=== PATIENT | male | born 1995 | race Caucasian/White ===

== ENCOUNTER 2021-09-30 10:00 | Outpatient (RCR) | payer OTHER, SELFPAY ==
[2021-09-01 12:21] VITALS: BMI 44.1
--- NOTE | 2021-09-01 14:14 | PC.ADMIT ---
Patient is a 25 year old transgendered male who lives in an apartment with roommates. He self referred back to the program as patient has a history of attending [facility] in 2018 and 2019. Patient struggling with increased depression with passive SI-denied plan or intent, increased anxiety, and reports social isolation spending much of his time in his room d/t COVID and not interacting much with others. He describes himself as having touch starvation made worse d/t the pandemic. Patient reports he is afraid to go anywhere including taking the bus or go to the store as he fears he will get Covid and also reports his roommate is immune compromised thus is afraid he will give it to his roommate even though he has been vaccinated per his report. Patient also stated he is in chronic pain, muscular pain in his middle to upper back and shoulders which he has recently been prescribed Lyrica from his End User Consultant. Patient feeling helpless and hopeless. Feels he has no supports or structure in his life and feels things are worse when he leaves his room as things are unpredictable. Lost interest in doing things. Reports disruptive sleep d/t nightmares and hyperviligence triggered my PTSD . Patient reports turbulent relationship with his parents whom he feels are not supportive. Patient feels he is unable to work as his anxiety prevents him from getting a job and also feels he is not capable to work. Patient is alert and oriented x4. Calm and cooperative. Presents with depressed mood and affect. Reports passive SI stating he thinks about and how he could whether he did it himself or if it just happens. Denied plan or intent and also stated he does not want to and thinks about the impact it would have on others is his protective factor. Reconciled patient's medications with patient and patient's pharmacy. Patient stated he is taking his medications as prescribed however stopped taking his testosterone 8-12 months ago, unclear why. Patient plans on restarting it in November, I advised patient to talk to his PCP regarding what dose he should start at since he has not taken it in almost a year and patient agreed.
--- NOTE | 2021-09-01 15:42 | PC.NURSE ---
Case opened in treatment team.
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
--- NOTE | 2021-09-02 10:17 | PC.NURSE ---
Emailed patient a copy of his safety plan.
--- NOTE | 2021-09-04 11:46 | PC.NURSE ---
Patient looking for assistance in setting up an appointment for a PAP test as patient stated he has not had one. Assisted patient in obtaining an appointment at [facility]. See discharge plan for details. Patient is aware of appointment.
--- NOTE | 2021-09-04 15:22 | PC.NURSE ---
I called and spoke with pt at his request. He spoke about concerns about growing social anxiety and agoraphobia despite efforts to reach out to others and leave the house at times. he spoke about how this is fueled by COVID and fear of getting it, and the fact that his roommate is immunocompromised. Pt also said he just saw his therapist at [facility] for the last time, as this therapist (Christopher Padron) is leaving [facility]. He said the therapist indicated that pt could be assigned a temporary therapist while waiting to get in with a therapist at [facility]. I agreed to call [facility] and see about this. We discussed use of groups, and ways to make groups feel more beneficial when difficult feelings (shame, embarrassment) come up in response to silence after talking about stressors (i.e. share about the feelings).
--- NOTE | 2021-09-04 15:29 | PC.NURSE ---
At pt's request, I called and left a message for [facility] Corcoran asking about the possibility of getting pt a temporary therapist while waiting to get in with [facility], since pt's therapist recently left the agency.
--- NOTE | 2021-09-09 17:23 | HO.PHPPROGNO ---
Subjective Subjective Date of Service: 09/09/21 Reason For Visit: Generalized Anxiety, Depression D/o, PTSD Interim History: Patient evaluated this morning and upon interview he reports he has not started taking the prazosin, will start tonight. Also reports it is too soon to say if duloxetine is helping. Says he is interested in a PRN anxiety medication. Has tried hydroxyzine and abilify was added at one point to even out anxiety and psychosis. Says he thinks abilify helped (discontinued due to wt gain) but vistaril didnt have much of an effect. Sx of anxiety include hypervigilance, my brain will tell me its a threat when he hears noises and says sometimes white noise will sound like voices but he can reality test this. Says I keep getting the message that people are interfering with my safety or threatening me, which doesnt make any sense. Says his anxiety is very high, rates it as a 7/10 each day. Alleviating factors for anxiety breathing and taking a hot shower. Says last night he had intense anxiety and the feeling lasted a few hours, it was unbearable. Says this happens to him 3-4 times a week and it worse at night due to having more unstructured time. Denies SI/ urges for self harm. Says he still wakes up a lot from nightmares, feels fatigued all of the time. Appetite is regular. Denies overeating. Has cannabis cravings.? Medication Compliance: Yes Side effects from medications: No Attending Groups: Yes Review of Systems Acute medical concerns: No Medical Review of Systems: unchanged Mental Status Exam Mental Status Exam Narrative: Well developed, overweight male, in NAD. A&OX4. Casually dressed, normal grooming and hygiene. Fully attentive during interview. No unusual movements or psychomotor changes observed. Speech clear, normal rate, tone, volume, without any time of pressure. Thought process goal directed, logical. No delusional thought, no AH/VH. Denies SI/SIB. Memory and concentration intact. Insight/judgment fair. Patient Behavior:?Appropriate, Cooperative and Good Eye Contact Mood Description:? anxious Affect Description:?blunted Patient Cognition Impaired:?No Ability to Follow Directions:?Excellent Speech Pattern:?Clear, Appropriate and Coherent Memory Description:?Intact Hallucinations:?None Delusions:?Not Present Diagnostics Vital Signs (24Hr): BMI result Body Mass Index 44.1 Assessment & Plan Assessment & Plan (1) MDD (major depressive disorder), recurrent episode, moderate: Status: Acute Code(s): F33.1 - Major depressive disorder, recurrent, moderate (2) Chronic post-traumatic stress disorder (PTSD): Status: Acute Code(s): F43.12 - Post-traumatic stress disorder, chronic (3) Cannabis abuse: Status: Acute Code(s): F12.10 - Cannabis abuse, uncomplicated Plan Pt reports ongoing PTSD symptoms, including increased hypervigilance, nightmares, exaggerated startle response, isolation, anhedonia. He reports depressive symptoms have been worsening through July and August. Hx of passive SI, with no intent or plan. Reports feeling safe . Plan: 1. start prazosin 1mg at bedtime for nightmares. 2. continue cymbalta 40mg daily for sx of depression, anxiety, PTSD, and chronic pain 3. continue abstinence from cannabis 4. Start seroquel 50 mg QD PRN for acute anxiety, anxious distress, mood lability 5. Continue with [facility] plan of care. 6. Follow-up as per protocol. Patient educated on: diagnosis, medication risk/benefits and therapeutic strategies Certification I certify that partial hospital treatment is medically necessary due to the symptoms and problems resulting from the patient's mental illness and the failure to treat the patient at the partial hospital level of care would likely result in the patient requiring inpatient psychiatric care which could not be prevented at a less intensive level of care. I spent minutes with the patient and/or on the patient floor today, greater than?50% of which was spent counseling/coordinating care. Discharge Plan Discharge Attending provider: Kirill Perez Additional Instructions: [facility] #[phone]. Appointment on September 25, 2021 at 3:00 pm with PCP Nicholas Mccracken. Medications: New duloxetine [Cymbalta] 20 mg capsule,delayed release(DR/EC) 20 mg PO BID 7 Days Qty: 14 0RF quetiapine [Seroquel] 50 mg tablet 50 mg PO DAILY PRN (Reason: anxiety) Qty: 14 0RF prazosin 2 mg capsule 4 mg PO BEDTIME Qty: 14 0RF Discontinued duloxetine [Cymbalta] 30 mg Capsule,Delayed Release(Dr/Ec) 30 mg PO DAILY 0RF No Action levothyroxine 100 mcg Tablet 200 mcg PO DAILY 0RF Rx Instructions: 100 mcg tablet. Take 2 tabs daily. lisinopril 5 mg Tablet 5 mg PO DAILY 0RF ergocalciferol (vitamin D2) [Vitamin D2] 1,250 mcg (50,000 unit) Capsule 1,250 mcg PO QWEEK 0RF Rx Instructions: Take on Wednesday pregabalin [Lyrica] 150 mg Capsule 150 mg PO BID 0RF Stand Alone Forms: Patient Portal Discharge page
--- NOTE | 2021-09-16 11:09 | HO.PHPPROGNO ---
Subjective Subjective Date of Service: 09/16/21 Reason For Visit: Generalized Anxiety, Depression D/o, PTSD Interim History: I evaluated the pt this morning and upon interview he denies benefit on prazosin, says he still has nightmares every night and ?high anxiety? and he is waking up ?quite a lot.? Pt says his nightmares are trauma and grief related. He recently increased Lisinopril to 10 mg x 1 week, denies SE, however says he has a hx of syncope due to hypotension, last incident of this was november 2019. He attributes this to anxiety and ?getting up too quickly from a sitting position.? Has had a cardiac workup and says all his EKGs are normal and a seizure disorder was ruled out. Reports positive benefit on PRN Seroquel, ?slows everything down? when he is very activated. Says his anxiety is ?still incredibly high day to day? and he has ?moments of intense anxiety,? but denies panic attacks. Medication Compliance: Yes Side effects from medications: No Attending Groups: Yes Review of Systems Acute medical concerns: No Medical Review of Systems: unchanged Mental Status Exam Mental Status Exam Narrative: Well developed, overweight male, in NAD. A&OX4. Casually dressed, normal grooming and hygiene. Fully attentive during interview. No unusual movements or psychomotor changes observed. Speech clear, normal rate, tone, volume, without any time of pressure. Thought process goal directed, logical. No delusional thought, no AH/VH. Denies SI/SIB. Memory and concentration intact. Insight/judgment fair. Patient Behavior:?Appropriate, Cooperative and Good Eye Contact Mood Description:? anxious Affect Description:?blunted Patient Cognition Impaired:?No Ability to Follow Directions:?Excellent Speech Pattern:?Clear, Appropriate and Coherent Memory Description:?Intact Hallucinations:?None Delusions:?Not Present Diagnostics Vital Signs (24Hr): BMI result Body Mass Index 44.1 Assessment & Plan Assessment & Plan (1) MDD (major depressive disorder), recurrent episode, moderate: Status: Acute Code(s): F33.1 - Major depressive disorder, recurrent, moderate (2) Chronic post-traumatic stress disorder (PTSD): Status: Acute Code(s): F43.12 - Post-traumatic stress disorder, chronic (3) Cannabis abuse: Status: Acute Code(s): F12.10 - Cannabis abuse, uncomplicated Plan Pt reports ongoing PTSD symptoms, including increased hypervigilance, nightmares, exaggerated startle response, isolation, anhedonia. He reports depressive symptoms have been worsening through July and August. Hx of passive SI, with no intent or plan. Reports feeling safe . Plan: 1. Increase prazosin to 2mg at bedtime for nightmares (may increase up to 4 mg for benefit) 2. continue cymbalta 40mg daily for sx of depression, anxiety, PTSD, and chronic pain 3. continue abstinence from cannabis 4. Continue seroquel 50 mg QD PRN for acute anxiety, anxious distress, mood lability 5. Continue with [facility] plan of care. 6. Follow-up as per protocol. Patient educated on: diagnosis, medication risk/benefits and therapeutic strategies Informed Consent: understands Certification I certify that partial hospital treatment is medically necessary due to the symptoms and problems resulting from the patient's mental illness and the failure to treat the patient at the partial hospital level of care would likely result in the patient requiring inpatient psychiatric care which could not be prevented at a less intensive level of care. I spent minutes with the patient and/or on the patient floor today, greater than?50% of which was spent counseling/coordinating care. Discharge Plan Discharge Attending provider: Kirill Perez Additional Instructions: [facility] #[phone]. Appointment on September 25, 2021 at 3:00 pm with PCP Nicholas Mccracken. Medications: New duloxetine [Cymbalta] 20 mg capsule,delayed release(DR/EC) 20 mg PO BID 7 Days Qty: 14 0RF quetiapine [Seroquel] 50 mg tablet 50 mg PO DAILY PRN (Reason: anxiety) Qty: 14 0RF prazosin 2 mg capsule 4 mg PO BEDTIME Qty: 14 0RF Discontinued duloxetine [Cymbalta] 30 mg Capsule,Delayed Release(Dr/Ec) 30 mg PO DAILY 0RF No Action levothyroxine 100 mcg Tablet 200 mcg PO DAILY 0RF Rx Instructions: 100 mcg tablet. Take 2 tabs daily. lisinopril 5 mg Tablet 5 mg PO DAILY 0RF ergocalciferol (vitamin D2) [Vitamin D2] 1,250 mcg (50,000 unit) Capsule 1,250 mcg PO QWEEK 0RF Rx Instructions: Take on Wednesday pregabalin [Lyrica] 150 mg Capsule 150 mg PO BID 0RF Stand Alone Forms: Patient Portal Discharge page
--- NOTE | 2021-09-17 14:14 | PC.NURSE ---
I called [facility] Corcoran and ALEXANDER for Adela Mcmahan, process area supervisor. I explained that pt saw therapist Christopher Lynn, who left the agency and told pt that he would be assigned a new therapist (or a temporary therapist since he is on the wait list at [facility]). GALEN did not return my last phone call. I asked Adela to pls call before pt discharges.
--- NOTE | 2021-09-23 11:41 | P.PNPSP_ITS ---
Subjective Subjective Date of Service: 09/23/21 Reason For Visit: Generalized Anxiety, Depression D/o, PTSD Interim History: I evaluated the pt this morning and upon interview he reports the higher dose of prazosin at 4 mg QHS is a better for nightmares, denies SE, his body pain is definitely gonna affect my ability to stay asleep. Says he has noticed pain relief on lyrica and cymbalta 20 mg BID. Continues to endorse passive SI, however he is utilizing supports and denies active SI, says he feels safe, denies plan or intent for suicide. Continues to endorse perceptual disturbances, i.e. hearing voices and things like that, but says I think that's just gonna be a thing for me. Reminded pt of PRN seroquel, as he reports this has been helpful for anxious distress and AH, prefers to take it as needed due to SE of sedation. Pt is future oriented. Medication Compliance: Yes Side effects from medications: No Attending Groups: Yes Review of Systems Acute medical concerns: No Medical Review of Systems: unchanged Mental Status Exam Mental Status Exam Narrative: Well developed, overweight male, in NAD. A&OX4. Casually dressed, normal grooming and hygiene. Fully attentive during interview. No unusual movements or psychomotor changes observed. Speech clear, normal rate, tone, volume, without any time of pressure. Thought process goal directed, logical. No delusional thought, no AH/VH. Denies SI/SIB. Memory and concentration intact. Insight/judgment fair. Patient Behavior:?Appropriate, Cooperative and Good Eye Contact Mood Description:? better Affect Description:?blunted Patient Cognition Impaired:?No Ability to Follow Directions:?Excellent Speech Pattern:?Clear, Appropriate and Coherent Memory Description:?Intact Hallucinations:?None Delusions:?Not Present Diagnostics Vital Signs (24Hr): BMI result Body Mass Index 44.1 Assessment & Plan Assessment & Plan (1) MDD (major depressive disorder), recurrent episode, moderate: Status: Acute Code(s): F33.1 - Major depressive disorder, recurrent, moderate (2) Chronic post-traumatic stress disorder (PTSD): Status: Acute Code(s): F43.12 - Post-traumatic stress disorder, chronic (3) Cannabis abuse: Status: Acute Code(s): F12.10 - Cannabis abuse, uncomplicated Plan Pt reports ongoing PTSD symptoms, including increased hypervigilance, nightmares, exaggerated startle response, isolation, anhedonia. He reports depressive symptoms have been worsening through July and August. Hx of passive SI, with no intent or plan. Reports feeling safe . Has perceptual disturbances that are trauma induced. Plan: 1. Continue prazosin 4 mg at bedtime for nightmares 2. continue cymbalta 40mg daily for sx of depression, anxiety, PTSD, and chronic pain 3. continue abstinence from cannabis 4. Increase seroquel to 50 mg BID PRN for acute anxiety, anxious distress, mood lability 5. Continue with [facility] plan of care. 6. Follow-up as per protocol. Certification I certify that partial hospital treatment is medically necessary due to the symptoms and problems resulting from the patient's mental illness and the failure to treat the patient at the partial hospital level of care would likely result in the patient requiring inpatient psychiatric care which could not be pr evented at a less intensive level of care. I spent minutes with the patient and/or on the patient floor today, greater than?50% of which was spent counseling/coordinating care. Discharge Plan Discharge Attending provider: Kirill Perez Additional Instructions: [facility] #[phone]. Appointment on September 25, 2021 at 3:00 pm with PCP Nicholas Mccracken. Medications: New duloxetine [Cymbalta] 20 mg capsule,delayed release(DR/EC) 20 mg PO BID 7 Days Qty: 14 0RF prazosin 2 mg capsule 4 mg PO BEDTIME Qty: 14 0RF quetiapine [Seroquel] 50 mg tablet 50 mg PO Q6H PRN (Reason: anxiety) Qty: 60 0RF Discontinued duloxetine [Cymbalta] 30 mg Capsule,Delayed Release(Dr/Ec) 30 mg PO DAILY 0RF No Action levothyroxine 100 mcg Tablet 200 mcg PO DAILY 0RF Rx Instructions: 100 mcg tablet. Take 2 tabs daily. lisinopril 5 mg Tablet 5 mg PO DAILY 0RF ergocalciferol (vitamin D2) [Vitamin D2] 1,250 mcg (50,000 unit) Capsule 1,250 mcg PO QWEEK 0RF Rx Instructions: Take on Wednesday pregabalin [Lyrica] 150 mg Capsule 150 mg PO BID 0RF Stand Alone Forms: Patient Portal Discharge page
--- NOTE | 2021-09-30 14:45 | PM.EVENT ---
Event Note Date of Service: 09/30/21 Event Note: Client did not attend scheduled appointment at 11:20am today.
--- NOTE | 2021-10-01 13:23 | PC.NURSE ---
Patient discharged from [facility] on 09/30/21. Patient feeling ready for D/C. Denied SI or thoughts to harm himself. Reviewed patient medications with patient. Patient reports taking medications as prescribed. Patient also reported Lisinopril was increased by his provider to 10 mg daily.
== END 2021-09-30 23:59 | disposition home or self-care (01) ==
LOC: HO.PHPA 10:00
PROVIDERS: Visit Provider Psychiatry & Neurology Psychiatry
DX: F33.1 Major depressive disorder, recurrent, moderate (principal); F43.12 Post-traumatic stress disorder, chronic; F12.10 Cannabis abuse, uncomplicated; Z79.899 Other long term (current) drug therapy
CPT/HCPCS: 90791; 90853

== ENCOUNTER → 2022-02-18 07:58 | Outpatient (BNVA) | payer OTHER, SELFPAY | PROVIDERS: PCP Pediatrics; Visit Provider Internal Medicine Rheumatology | DX: M25.50 Pain in unspecified joint (principal); M50.322 Other cervical disc degeneration at C5-C6 level; M51.36 Other intervertebral disc degeneration, lumbar region; M79.7 Fibromyalgia | CPT/HCPCS: 99202 ==